=== PATIENT | male | born 1945 | race African-American/Black ===

== ENCOUNTER 2022-03-02 11:42 | Emergency (ER) | payer OTHER ==
[2022-03-02 12:18] VITALS: BP 163/82; PULSE 82; TEMP 98.2; BMI 34.8
[2022-03-02] MEDS ORDERED: ACETAMINOPHEN 325 MG TABLET (FP) PO ONE (12:55)
[2022-03-02] MEDS ORDERED: ACETAMINOPHEN 1000 MG/100 ML BAG IVPB ONE (13:04)
[2022-03-02] MEDS ORDERED: ACETAMINOPHEN INJECTION 100 ML IVPB ONE (13:05)
[2022-03-02 13:27] LABS: BASO % 0.6 % (0-2.0); EOS % 3.5 % (0-4.5); HEMATOCRIT 44.8 % (35.4-49); HEMOGLOBIN 15.2 GM/dL (11.7-16.9); LYMPH % 23.6 % (8-40); MCH 31.1 pg (25.7-33.7); MCHC 33.9 g/dl (32.0-35.9); MEAN CELL VOLUME 91.7 fl (80-96); MEAN PLT VOLUME 7.3 fl (7.5-11.1); MONO % 12.4 % (3.8-10.2); NEUT % 59.9 % (42.8-82.8); PLATELET COUNT 177 10^3/uL (134-434); RBC 4.88 M/mm3 (4.00-5.60); RDW 13.1 % (11.9-15.9)
[2022-03-02 13:47] LABS: CALCIUM 9.9 mg/dL (8.5-10.1)
[2022-03-02 13:48] LABS: ALBUMIN 4.2 g/dl (3.4-5.0); BLOOD UREA NITROGEN 15.1 mg/dL (7-18)
[2022-03-02 13:50] LABS: URIC ACID 5.4 mg/dL (2.6-7.2)
[2022-03-02 13:51] LABS: CREATININE 0.9 mg/dL (0.55-1.3)
[2022-03-02 13:53] LABS: TOT PROT 7.5 g/dl (6.4-8.2)
[2022-03-02 14:09] LABS: ERYTHROCYTE SEDIMENTATION RATE 4 mm/hr (0-20)
== END 2022-03-02 16:10 | disposition home or self-care (01) ==
LOC: JER 11:42
PROC: 3E0333Z Introduction of Anti-inflammatory into Peripheral Vein, Percutaneous Approach (ICD-10-PCS; principal; 2022-03-02)
DX: M71.21 Synovial cyst of popliteal space [Baker], right knee (principal); M54.32 Sciatica, left side
CPT/HCPCS: 36415; 73521-TC-FY; 73560-TC-LT-FY; 73610-TC-RT-FY; 73630-TC-RT-FY; 80053; 82550; 82553; 84550; 85025; 85651; 86140; 93970-TC; 96374; 99285-25

== ENCOUNTER 2022-08-24 09:21 | Emergency (ER) | payer OTHER ==
[2022-08-24 09:29] VITALS: BP 152/83; PULSE 63; RESP 18; TEMP 98.3; BMI 33.7
[2022-08-24 10:50] LABS: CALCIUM 9.2 mg/dL (8.5-10.1)
[2022-08-24 10:51] LABS: ALBUMIN 3.8 g/dl (3.4-5.0); BLOOD UREA NITROGEN 11.9 mg/dL (7-18)
[2022-08-24 10:53] LABS: CREATININE 0.7 mg/dL (0.55-1.3)
[2022-08-24 10:55] LABS: BILIRUBIN,TOTAL 0.8 mg/dL (0.2-1)
== END 2022-08-24 11:20 | disposition home or self-care (01) ==
LOC: JERFT 09:21 → JER 09:21 → JERFT 11:20
DX: Z01.89 Encounter for other specified special examinations (principal)
CPT/HCPCS: 36415; 80053; 99282-25

== ENCOUNTER 2023-09-23 11:48 | Inpatient (IN) | payer OTHER ==
[2023-09-23] MEDS ORDERED: ACETAMINOPHEN INJECTION 100 ML IVPB ONE (13:35)
[2023-09-23] MEDS ORDERED: FAMOTIDINE 20 MG/50 ML IVPB 20 MG/50 ML MG IVPB ONE (13:35)
[2023-09-23] MEDS ORDERED: MAG HYDROX/AL HYDROX/SIMETH 30 ML UNIT-DOSE CUP ONE (13:35)
[2023-09-23] MEDS ORDERED: ONDANSETRON 4 MG/2 ML VIAL ONE (14:15)
[2023-09-23 14:21] LABS: BASO % 0.4 % (0-2.0); EOS % 0.8 % (0-4.5); HEMATOCRIT 48.6 % (35.4-49); HEMOGLOBIN 16.4 GM/dL (11.7-16.9); LYMPH % 10.1 % (8-40); MCH 31.5 pg (25.7-33.7); MCHC 33.8 g/dl (32.0-35.9); MEAN CELL VOLUME 93.3 fl (80-96); MEAN PLT VOLUME 8.2 fl (7.5-11.1); MONO % 12.2 % (3.8-10.2); NEUT % 76.5 % (42.8-82.8); PLATELET COUNT 211 10^3/uL (134-434); RBC 5.21 M/mm3 (4.00-5.60); RDW 12.7 % (11.9-15.9); WHITE BLOOD COUNT 10.8 K/mm3 (4.0-10.0)
[2023-09-23 14:26] LABS: EPI CELLS 9 /uL (0-25.1); HYALINE CASTS 5 /uL (0-3.1); PH,URINE 5.5 (5.0-8.0); URINE APPEARANCE CLEAR; URINE BACTERIA 0 /uL (0-1359); URINE BILIRUBIN 1+ (NEGATIVE); URINE COLOR DK YELLOW; URINE GLUCOSE (UA) NEGATIVE (NEGATIVE); URINE KETONE 1+ (NEGATIVE); URINE LEUK ESTERASE TRACE (NEGATIVE); URINE NITRITE NEGATIVE (NEGATIVE); URINE PROTEIN 1+ (NEGATIVE); URINE RBC 32 /uL (0-23.9); URINE WBC 40 /uL (0-25.8)
[2023-09-23] MEDS: FAMOTIDINE 20 MG/50 ML IVPB 20 MG/50 ML MG IVPB ONE (14:35)
[2023-09-23] MEDS: MAG HYDROX/AL HYDROX/SIMETH 30 ML UNIT-DOSE CUP PO ONE (14:35)
[2023-09-23] MEDS: SODIUM CHLORIDE 0.9% 500 ML INFUS.BAG IV ONE (14:35)
[2023-09-23] MEDS: ACETAMINOPHEN 1000 MG/100 ML BAG IVPB ONE (14:35)
[2023-09-23 14:37] LABS: INR 1.05 (0.83-1.09); PROTHROMBIN TIME (PATIENT) 12.2 SEC (9.7-13.0)
[2023-09-23 14:39] LABS: ACTIVATED PTT 18.5 SECONDS (25.2-36.5)
[2023-09-23 14:49] LABS: POTASSIUM 5.1 mmol/L (3.5-5.1)
[2023-09-23 14:56] LABS: ALBUMIN 3.9 g/dl (3.4-5.0); BLOOD UREA NITROGEN 13.5 mg/dL (7-18); CALCIUM 9.4 mg/dL (8.5-10.1)
[2023-09-23] MEDS: ONDANSETRON 4 MG/2 ML VIAL IVPUSH ONE (14:57)
[2023-09-23 15:00] LABS: CREATININE 1.1 mg/dL (0.55-1.3)
[2023-09-23 16:53] LABS: BILIRUBIN,DIRECT 0.2 mg/dL (0.0-0.2)
[2023-09-23] MEDS ORDERED: morphine SULFATE 4 MG/ML VIAL ONE (17:50)
[2023-09-23] MEDS ORDERED: TRIMETHOBENZAMIDE HCL 200MG/2ML INJ IM PRN (17:54)
[2023-09-23] MEDS: morphine SULFATE 4 MG/ML VIAL IVPUSH PRN (17:57)
[2023-09-23] MEDS: morphine CARPU-JECT 4 MG/1 ML DISP.SYRIN IVPUSH ONE (18:04)
[2023-09-23] MEDS: DEXTROSE 5%-NORMAL SALINE 1,000 ML IV SCH (18:08)
[2023-09-23] MEDS: INSULIN ASPART SLIDING SCALE (NOVOLOG) 1 VIAL SQ SCH (23:06)
[2023-09-23] MEDS ORDERED: HYDROCHLOROTHIAZIDE 25 MG TABLET (FP) ONE (23:26)
[2023-09-23] MEDS ORDERED: LOSARTAN POTASSIUM 50 MG TABLET ONE (23:27)
[2023-09-23] MEDS: SPIRONOLACTONE 25 MG TABLET PO SCH (23:36)
[2023-09-23] MEDS: PATIENT'S OWN MEDICATION (NON-FORMULARY) (Losartan Potassium [Cozaar] 100 MG Tablet) PO SCH (23:36)
[2023-09-23] MEDS: HYDROCHLOROTHIAZIDE 12.5 MG CAPSULE (FP) PO SCH (23:36)
[2023-09-24] MEDS ORDERED: LOSARTAN POTASSIUM 50 MG TABLET PO SCH (00:15)
[2023-09-24] MEDS: LOSARTAN POTASSIUM 50 MG TABLET PO SCH (01:45)
[2023-09-24 10:45] LABS: BASO % 0.3 % (0-2.0); EOS % 3.2 % (0-4.5); HEMATOCRIT 41.7 % (35.4-49); HEMOGLOBIN 14.5 GM/dL (11.7-16.9); LYMPH % 13.9 % (8-40); MCHC 34.7 g/dl (32.0-35.9); MEAN CELL VOLUME 92.1 fl (80-96); MEAN PLT VOLUME 7.6 fl (7.5-11.1); MONO % 14.3 % (3.8-10.2); NEUT % 68.3 % (42.8-82.8); PLATELET COUNT 191 10^3/uL (134-434); RBC 4.53 M/mm3 (4.00-5.60); WHITE BLOOD COUNT 7.1 K/mm3 (4.0-10.0)
[2023-09-24 11:00] LABS: POTASSIUM 3.4 mmol/L (3.5-5.1)
[2023-09-24 11:05] LABS: CALCIUM 8.8 mg/dL (8.5-10.1)
[2023-09-24 11:06] LABS: ALBUMIN 3.5 g/dl (3.4-5.0); BLOOD UREA NITROGEN 9.1 mg/dL (7-18); MAGNESIUM 2.2 mg/dL (1.8-2.4)
[2023-09-24 11:09] LABS: CREATININE 0.8 mg/dL (0.55-1.3); PHOSPHOROUS 2.6 mg/dL (2.5-4.9)
[2023-09-24 11:10] LABS: TOT PROT 6.8 g/dl (6.4-8.2)
[2023-09-25 10:01] LABS: BASO % 0.3 % (0-2.0); EOS % 4.1 % (0-4.5); HEMATOCRIT 40.2 % (35.4-49); HEMOGLOBIN 13.6 GM/dL (11.7-16.9); LYMPH % 16.2 % (8-40); MCH 31.6 pg (25.7-33.7); MCHC 33.9 g/dl (32.0-35.9); MEAN CELL VOLUME 93.1 fl (80-96); MEAN PLT VOLUME 7.4 fl (7.5-11.1); MONO % 12.5 % (3.8-10.2); NEUT % 66.9 % (42.8-82.8); PLATELET COUNT 191 10^3/uL (134-434); RBC 4.32 M/mm3 (4.00-5.60); RDW 12.8 % (11.9-15.9); WHITE BLOOD COUNT 6.7 K/mm3 (4.0-10.0)
[2023-09-25 10:26] LABS: POTASSIUM 3.4 mmol/L (3.5-5.1)
[2023-09-25 10:42] LABS: BLOOD UREA NITROGEN 7.6 mg/dL (7-18); CALCIUM 8.4 mg/dL (8.5-10.1)
[2023-09-25 10:43] LABS: ALBUMIN 3.3 g/dl (3.4-5.0)
[2023-09-25 10:45] LABS: BILIRUBIN,TOTAL 0.8 mg/dL (0.2-1); CREATININE 0.8 mg/dL (0.55-1.3); TOT PROT 6.5 g/dl (6.4-8.2)
[2023-09-25] MEDS: FLU VACCINE (FLULAVAL) PF 60 MCG/0.5 ML SYRINGE 2023-2024 IM ONE (15:25)
[2023-09-26] MEDS: ACETAMINOPHEN 1000 MG/100 ML BAG IVPB ONE (05:46)
[2023-09-26 08:42] LABS: BASO % 0.3 % (0-2.0); EOS % 1.2 % (0-4.5); HEMATOCRIT 41.4 % (35.4-49); HEMOGLOBIN 14.1 GM/dL (11.7-16.9); LYMPH % 10.9 % (8-40); MCH 31.9 pg (25.7-33.7); MCHC 34.2 g/dl (32.0-35.9); MEAN CELL VOLUME 93.3 fl (80-96); MONO % 9.9 % (3.8-10.2); NEUT % 77.7 % (42.8-82.8); PLATELET COUNT 215 10^3/uL (134-434); RBC 4.44 M/mm3 (4.00-5.60); RDW 12.4 % (11.9-15.9); WHITE BLOOD COUNT 8.4 K/mm3 (4.0-10.0)
[2023-09-26 09:35] LABS: ALBUMIN 3.6 g/dl (3.4-5.0); BILIRUBIN,TOTAL 0.8 mg/dL (0.2-1); CALCIUM 9.1 mg/dL (8.5-10.1); CREATININE 0.8 mg/dL (0.55-1.3); POTASSIUM 3.6 mmol/L (3.5-5.1); TOT PROT 7.1 g/dl (6.4-8.2)
[2023-09-26] MEDS ORDERED: SIMETHICONE 80 MG TAB.CHEW (FP) PO PRN (09:39)
[2023-09-26] MEDS: PANTOPRAZOLE 40 MG TABLET PO SCH (12:11)
[2023-09-26] MEDS: LACTATED RINGERS SOLUTION 1,000 ML/1,000 ML INFUS.BAG IV SCH (12:11)
[2023-09-26 23:54] VITALS: BMI 32.5
[2023-09-27 10:21] LABS: BASO % 0.4 % (0-2.0); HEMATOCRIT 39.5 % (35.4-49); HEMOGLOBIN 13.7 GM/dL (11.7-16.9); LYMPH % 12.3 % (8-40); MCH 32.1 pg (25.7-33.7); MCHC 34.7 g/dl (32.0-35.9); MEAN CELL VOLUME 92.4 fl (80-96); MEAN PLT VOLUME 7.1 fl (7.5-11.1); MONO % 10.5 % (3.8-10.2); NEUT % 74.8 % (42.8-82.8); PLATELET COUNT 214 10^3/uL (134-434); RBC 4.27 M/mm3 (4.00-5.60); RDW 12.8 % (11.9-15.9); WHITE BLOOD COUNT 8.6 K/mm3 (4.0-10.0)
[2023-09-27 10:36] LABS: POTASSIUM 3.7 mmol/L (3.5-5.1)
[2023-09-27 10:46] LABS: ALBUMIN 3.5 g/dl (3.4-5.0); BLOOD UREA NITROGEN 9.4 mg/dL (7-18); CALCIUM 9.3 mg/dL (8.5-10.1)
[2023-09-27 10:47] LABS: MAGNESIUM 2.1 mg/dL (1.8-2.4)
[2023-09-27 10:48] LABS: CREATININE 0.8 mg/dL (0.55-1.3)
[2023-09-27 10:49] LABS: PHOSPHOROUS 3.4 mg/dL (2.5-4.9)
[2023-09-27 10:50] LABS: TOT PROT 6.6 g/dl (6.4-8.2)
[2023-09-27] MEDS: LACTATED RINGERS SOLUTION 1,000 ML/1,000 ML INFUS.BAG IV SCH (13:00)
[2023-09-27 14:50] VITALS: RESP 18
[2023-09-28 10:47] LABS: HEMATOCRIT 41.1 % (35.4-49); HEMOGLOBIN 13.9 GM/dL (11.7-16.9); MCH 31.5 pg (25.7-33.7); MCHC 33.8 g/dl (32.0-35.9); MEAN CELL VOLUME 93.1 fl (80-96); PLATELET COUNT 233 10^3/uL (134-434); RBC 4.42 M/mm3 (4.00-5.60); RDW 12.9 % (11.9-15.9); WHITE BLOOD COUNT 6.8 K/mm3 (4.0-10.0)
[2023-09-28 11:13] LABS: PHOSPHOROUS 3.1 mg/dL (2.5-4.9)
[2023-09-28] MEDS: AMINO ACIDS 4.25%/D5W 1,000 ML IV SCH (12:43)
[2023-09-29] MEDS ORDERED: LACTATED RINGERS SOLUTION 1,000 ML/1,000 ML INFUS.BAG IV SCH (04:29)
[2023-09-29] MEDS: LACTATED RINGERS SOLUTION 1,000 ML/1,000 ML INFUS.BAG IV SCH (04:35)
[2023-09-29 09:37] VITALS: BP 131/77; PULSE 60; TEMP 98.5
[2023-09-29 10:51] LABS: POTASSIUM 3.7 mmol/L (3.5-5.1)
[2023-09-29 10:58] LABS: CALCIUM 9.6 mg/dL (8.5-10.1)
[2023-09-29 10:59] LABS: ALBUMIN 3.6 g/dl (3.4-5.0); BLOOD UREA NITROGEN 7.4 mg/dL (7-18)
[2023-09-29 11:04] LABS: BILIRUBIN,TOTAL 0.8 mg/dL (0.2-1); TOT PROT 6.9 g/dl (6.4-8.2)
[2023-09-29 11:23] LABS: BASO % 0.4 % (0-2.0); EOS % 2.3 % (0-4.5); HEMATOCRIT 40.5 % (35.4-49); HEMOGLOBIN 13.8 GM/dL (11.7-16.9); LYMPH % 15.9 % (8-40); MCH 31.7 pg (25.7-33.7); MCHC 34.1 g/dl (32.0-35.9); MEAN CELL VOLUME 92.9 fl (80-96); MEAN PLT VOLUME 7.2 fl (7.5-11.1); MONO % 9.8 % (3.8-10.2); NEUT % 71.6 % (42.8-82.8); PLATELET COUNT 231 10^3/uL (134-434); RBC 4.36 M/mm3 (4.00-5.60); RDW 12.6 % (11.9-15.9); WHITE BLOOD COUNT 7.2 K/mm3 (4.0-10.0)
== END 2023-09-29 11:40 | disposition home or self-care (01) | DRG 389 ==
LOC: JER 11:48 → JERBED 17:29 → J6S 09-24 03:24 → UNDODISIN 09-27 18:34 → J6S 09-27 22:52
PROVIDERS: ADMIT Internal Medicine; ATTEND Internal Medicine
PROC: 0D9670Z Drainage of Stomach with Drainage Device, Via Natural or Artificial Opening (ICD-10-PCS; principal; 2023-09-26)
DX: K56.600 Partial intestinal obstruction, unspecified as to cause (principal); E87.1 Hypo-osmolality and hyponatremia; I45.2 Bifascicular block; D72.829 Elevated white blood cell count, unspecified; A08.4 Viral intestinal infection, unspecified; I10 Essential (primary) hypertension; I45.10 Unspecified right bundle-branch block; E11.9 Type 2 diabetes mellitus without complications; Z96.642 Presence of left artificial hip joint; Z96.653 Presence of artificial knee joint, bilateral
CPT/HCPCS: 36415; 71045-TC-FY; 74018-TC-FY; 74019-TC-FY; 74174-TC; 80048; 80053; 81003; 82248; 82962; 83036; 83605; 83735; 84100; 84484; 85025; 85027; 85610; 85730; 87086; 90686; 93005; 93010; 93306-TC; 99285-25; G0008; J0131; Q9967